=== PATIENT | female | born 1980 | race Two or more races ===

== ENCOUNTER 2017-09-28 23:45 | Emergency (ER) | payer BC, OTHER ==
[~2017-09-28] VITALS: Ht 167.6 cm; Wt 36.3 kg
[2017-09-29] MEDS ORDERED: LEVO88TA5 PO (00:23)
[2017-09-29] MEDS ORDERED: ALPR2TAB7 PO (00:25)
[2017-09-29] MEDS ORDERED: MORP30TA59 PO ×2 (00:25→17:35)
--- NOTE | 2017-09-29 00:29 | NUR ---
DR ARLETTE VALENTE MD AT BEDSIDE FOR MSE.
[2017-09-29] MEDS ORDERED: MORPHINE SULFATE 4 MG/1 ML DISP.SYRIN IM ONE (00:45)
[2017-09-29] MEDS ORDERED: ONDANSETRON ODT 4 MG TAB.RAPDIS SL ONE (00:45)
[2017-09-29] MEDS ORDERED: ONDANSETRON ODT 4 MG TAB.RAPDIS ONE (00:47)
[2017-09-29] MEDS ORDERED: MORPHINE SULFATE 4 MG/1 ML DISP.SYRIN ONE (00:48)
[2017-09-29 01:00] VITALS: BP 114/72
--- NOTE | 2017-09-29 01:02 | NUR ---
Patient discharged to home in stable conditon. Written and verbal after care instructions given. Patient verbalizes understanding of instructions. Pt ambulated from ER w/ steady gait. Denies pain at this time. Pt a&ox4. No distress noted. Pt took all personal belongings.
== END 2017-09-29 01:03 | disposition home or self-care (01) ==
LOC: ER 23:50
DX: G89.29 Other chronic pain (principal); N80.9 Endometriosis, unspecified; Z88.2 Allergy status to sulfonamides; Z79.891 Long term (current) use of opiate analgesic; Z79.899 Other long term (current) drug therapy
CPT/HCPCS: A4663; J2270; Q0162

== ENCOUNTER 2017-09-29 16:45 | Emergency (ER) | payer BC ==
[~2017-09-29] VITALS: Ht 162.6 cm; Wt 36.3 kg
[~2017-09-29 16:45] MED LIST: ALPR2TAB7 PO; LEVO88TA5 PO; MORP30TA59 PO
[2017-09-29] MEDS ORDERED: MORP30TA59 PO (17:35)
--- NOTE | 2017-09-29 18:01 | NUR ---
Patient discharged to home in stable conditon. Written and verbal after care instructions given to patient. Patient verbalizes understanding of instructions.
== END 2017-09-29 18:02 | disposition home or self-care (01) ==
LOC: ER 16:48
DX: G89.29 Other chronic pain (principal); N80.9 Endometriosis, unspecified; Z88.2 Allergy status to sulfonamides; Z79.891 Long term (current) use of opiate analgesic; Z79.899 Other long term (current) drug therapy
CPT/HCPCS: A4663

== ENCOUNTER 2020-06-13 22:22 | Emergency (ER) | payer BC, MEDICAID ==
[~2020-06-13] VITALS: Ht 167.6 cm; Wt 38.6 kg
--- NOTE | 2020-06-13 22:42 | NUR ---
at bedside for MSE.
[2020-06-13 23:20] LABS: BASOPHILS # (AUTO) 0.1 K/uL (0.0-8.0); BASOPHILS % (AUTO) 0.8 % (0.0-2.0); EOSINOPHILS % (AUTO) 0.4 % (0.0-7.0); HEMATOCRIT 42.6 % (31.2-41.9); HEMOGLOBIN 14.8 g/dL (10.9-14.3); LYMPHOCYTES # (AUTO) 1.4 K/uL (20.0-40.0); LYMPHOCYTES % (AUTO) 17.4 % (20.5-51.5); MEAN CORPUSCULAR HEMOGLOBIN 31.8 uug (24.7-32.8); MEAN CORPUSCULAR HGB CONC 35 g/dL (32.3-35.6); MEAN CORPUSCULAR VOLUME 91.7 fL (75.5-95.3); MONOCYTES # (AUTO) 0.9 K/uL (2.0-10.0); MONOCYTES % (AUTO) 10.4 % (0.0-11.0); NEUTROPHILS # (AUTO) 5.9 K/uL (1.8-8.9); PLATELET COUNT (AUTO) 297 K/uL (179-408); RED BLOOD CELL COUNT(AUTO) 4.64 MIL/uL (3.63-4.92); WHITE BLOOD COUNT (AUTO) 8.3 K/uL (3.8-11.8)
[2020-06-13 23:34] LABS: BILIRUBIN,TOTAL 0.9 mg/dL (0.2-1.0); CREATININE 1.2 mg/dL (0.6-1.3); MAGNESIUM 1.9 mg/dL (1.8-2.4); POTASSIUM 3.6 mmol/L (3.5-5.1); TOTAL PROTEIN, SERUM 7.7 g/dL (6.4-8.2)
[2020-06-13 23:42] LABS: THYROID STIMULATING HORMONE 2.588 mIU/mL (0.358-3.740)
[2020-06-14 00:32] LABS: *BLOOD, URINE NEGATIVE (NEGATIVE); *CLARITY,URINE SLIGHTLY CLOUDY (CLEAR); *COLOR,URINE DARK YELLOW (YELLOW); *KETONES,URINE 1+ (NEGATIVE); LEUKOCYTE ESTERASE ,URINE NEGATIVE (NEGATIVE); NITRITE, URINE NEGATIVE (NEGATIVE); PH,URINE 5.5 (5.0-8.0); UGLUCOSE NEGATIVE (NEGATIVE)
[2020-06-14 00:45] LABS: *BILIRUBIN,URIN 3+ (NEGATIVE); *URINE HCG, QUAL NEGATIVE (NEGATIVE)
[2020-06-14 00:54] LABS: BACTERIA,URINE NONE SEEN /HPF (NONE SEEN); MUCUS,URINE MANY /LPF (0-FEW); RBC,URINE 0-3 /HPF (0-3); SQUAMOUS EPITHELIAL CELL,UR MANY /HPF (NONE SEEN); URINE AMORPHOUS URATE MODERATE /HPF
[2020-06-14 01:00] VITALS: BP 130/81
== END 2020-06-14 01:10 | disposition home or self-care (01) ==
LOC: ER 22:33
DX: R00.0 Tachycardia, unspecified (principal); F41.9 Anxiety disorder, unspecified; R63.4 Abnormal weight loss; Z68.1 Body mass index [BMI] 19.9 or less, adult; Z79.890 Hormone replacement therapy; Z88.2 Allergy status to sulfonamides; G89.29 Other chronic pain; Z86.39 Personal history of other endocrine, nutritional and metabolic disease; Z83.6 Family history of other diseases of the respiratory system; Z84.89 Family history of other specified conditions; Z86.19 Personal history of other infectious and parasitic diseases
CPT/HCPCS: 36415; 83735; 84443; 84703; 85025; 87086; 93005; A4663